=== PATIENT | female | born 1975 ===

== ENCOUNTER 2019-05-08 16:41 | Outpatient (REF) | payer BC, SELFPAY ==
[2019-05-08 18:17] LABS: HCT 41.8 % (36.0-46.0); HGB 13.8 g/dL (12.0-15.5); Mean Corpuscular Hemoglobin 29.7 pg (27.0-33.0); Mean Corpuscular Volume 89.9 fL (80-95); Mean Platelet Volume 10.2 fL (8.0-11.0); Platelet Count 440 x1000/uL (130-400); RBC 4.65 m/cumm (4.00-5.20); RBC Distribution Width 13.2 % (11.7-14.6); White Blood Cell Count 7.36 k/cumm (4.4-10.8)
[2019-05-08 18:47] LABS: Hemoglobin A1C 6.1 % (4.5-6.2)
[2019-05-08 18:52] LABS: ALT 26 U/L (14-59); AST 18 U/L (15-37); Albumin 3.9 g/dL (3.4-5.0); Alkaline Phosphatase 65 U/L (46-116); Anion Gap 8.3 mmol/L (3-11); BUN 12 mg/dL (7-18); Bilirubin, Total 0.2 mg/dL (0.2-1.0); CO2 27.7 mmol/L (21.0-32.0); CREATININE 0.78 mg/dL (0.55-1.02); Calcium 9.1 mg/dL (8.5-10.1); Chloride 105 mmol/L (98-107); Glucose 163 mg/dL (74-106); Sodium 141 mmol/L (136-145); TSH (W/Ref FT4) 1.56 uIU/mL (0.36-3.74); Total Protein 7.1 g/dL (6.4-8.2)
== END 2019-05-08 17:01 ==
LOC: NCHCN 16:41
PROVIDERS: Visit Provider Nurse Practitioner Family
DX: E03.9 Hypothyroidism, unspecified (principal); R53.83 Other fatigue; R73.03 Prediabetes
CPT/HCPCS: 80053; 85027; 83036; 84443

== ENCOUNTER 2020-01-17 13:26 | Outpatient (REF) | payer SELFPAY ==
--- NOTE | 2020-01-17 11:30 | PAPFT_PTH ---
PATIENT: MICHEAL OSWALD LOC: [facility] U#:[id number] AGE/SX: 44/F ROOM: RE01/17/[address]: Negro Castillo : 1975 BED: DIS: 01/17/2020 SPEC #: [id number] RECD: 01/18/20 13:11 STATUS: STACY REQ #: [id number] MOR: 01/17/20 11:[address]: Negro Castillo DEPT: [facility] Cytology RECD BY: Deanna Maya Tissues: 1 - CX/ENDOCX FOR PAP SMEARS Procedures: PAP THIN PREP/[facility] Screening HPV DNA PROBE Comments: [id number]
== END 2020-01-17 13:46 ==
LOC: NCHCN 13:26
PROVIDERS: Visit Provider Nurse Practitioner Family
DX: Z11.51 Encounter for screening for human papillomavirus (HPV) (principal)
CPT/HCPCS: 88142; 87624